=== PATIENT | female | born 1940 ===

== ENCOUNTER 2017-08-27 16:40 | Emergency (ER) | payer MEDICARE, OTHER ==
[2017-08-27 16:59] VITALS: BMI 24.9
--- NOTE | 2017-08-27 17:55 | RAD ---
PROCEDURE: Left Hip X-ray Radiographs. HISTORY: pain with walking, fell one week ago COMPARISON: None. FINDINGS: BONES: No acute fracture. JOINTS: Bilateral hip and symphysis pubis degenerative changes. SOFT TISSUES: Normal. OTHER FINDINGS: None. IMPRESSION: No demonstrated fracture or dislocation. Degenerative changes.
--- NOTE | 2017-08-27 17:59 | C.PDOC ---
History Of Present Illness Patient with hip pain for several months, reports a fall about 2 weeks ago. Patient is able to walk but has some pain. She was seen by PCP and is to have physical therapy but not scheduled yet. Denies any numbness, weakness, incontinence. Time Seen by Provider: 08/27/17 17:12 Chief Complaint (Nursing): Hip Pain History Per: Patient History/Exam Limitations: no limitations Onset/Duration Of Symptoms: Days Past Medical History Reviewed: Historical Data, Nursing Documentation, Vital Signs Vital Signs: Last Vital Signs Temp 98.2 F 08/27/17 18:14 Pulse 70 08/27/17 18:14 Resp 16 08/27/17 18:14 BP 158/70 H 08/27/17 18:14 Pulse Ox 97 08/27/17 18:16 - Medical History PMH: Hiatal Hernia, HTN Denies: Chronic Kidney Disease Surgical History: Endoscopy - [facility] Procedures CLOSED ENDOSCOPIC BIOPSY OF LARGE INTESTINE (10/28/14) Family History: States: No Known Family Hx - Social History Hx Alcohol Use: No Hx Substance Use: No - Immunization History Hx Tetanus Toxoid Vaccination: No Hx Influenza Vaccination: No Hx Pneumococcal Vaccination: No Review Of Systems Constitutional: Negative for: Fever Musculoskeletal: Positive for: Other (left hip pain). Negative for: Back Pain, Leg Pain Neurological: Negative for: Weakness, Numbness Physical Exam - Physical Exam Appears: Non-toxic, No Acute Distress Skin: Normal Color, Warm, Dry, No Rash Head: Atraumatic, Normacephalic Eye(s): bilateral: Normal Inspection, EOMI Neck: Normal ROM Chest: Symmetrical Cardiovascular: Rhythm Regular, No Murmur Respiratory: Normal Breath Sounds, No Rhonchi, No Wheezing Gastrointestinal/Abdominal: Soft, No Tenderness, No Hernia Back: Normal Inspection, Vertebral Tenderness, No Paraspinal Tenderness Extremity: Normal ROM, Tenderness, Capillary Refill (<2 seconds), No Deformity, No Swelling, Other (left hip tenderness laterally. no ecchymosis, swelling, deformity) Neurological/Psych: Oriented x3, Normal Speech Gait: Steady ED Course And Treatment O2 Sat by Pulse Oximetry: 97 (RA) Pulse Ox Interpretation: Normal Medical Decision Making Medical Decision Making: Patient with hip pain for several months, reports a fall about 2 weeks ago. Patient is able to walk but has some pain. Toradol IM ordered. Xray of hip ordered and viewed showing degenerative changes, no fracture or dislocation. Patient is ambulatory without signs of discomfort. She is stable for discharge Disposition Counseled Patient/Family Regarding: Need For Followup, Rx Given - Disposition Referrals: Libra Braun [Staff Provider] - Disposition: HOME/ ROUTINE Disposition Time: 17:59 Condition: IMPROVED Additional Instructions: Prescription sent to your pharmacy [facility] Take pain medicine as needed Follow up with your primary medical doctor Return to the emergency department at any time if symptoms persist or worsen. Receta enviada a [facility] [place] medicamento para el dolor segn sea necesario Clark un seguimiento con [facility] mdico primario Regrese al departamento de emergencia en cualquier momento si los sntomas persisten o empeoran. Prescriptions: Naproxen 500 mg PO DAILY #20 tablet Instructions: Hip Pain in Older People Forms: [facility] (Tajik) Print Language: ARABIC - Clinical Impression Clinical Impression: Hip pain, Arthralgia - Scribe Statement The provider has reviewed the documentation as recorded by the Scribe (Bebe Dickens) All medical record entries made by the Scribe were at my direction and personally dictated by me. I have reviewed the chart and agree that the record accurately reflects my personal performance of the history, physical exam, medical decision making, and the department course for this patient. I have also personally directed, reviewed, and agree with the discharge instructions and disposition.
[2017-08-27 18:14] VITALS: BP 158/70; PULSE 70; RESP 16; TEMP 98.2
[2017-08-27 18:16] VITALS: O2SAT 97
== END 2017-08-27 18:13 | disposition home or self-care (01) ==
LOC: C.ER 16:40
DX: M25.552 Pain in left hip (principal)
CPT/HCPCS: 73502; 96372; 99284; J1885